=== PATIENT | male | born 2000 | race Caucasian/White ===

== ENCOUNTER 2018-05-19 18:32 | Emergency (ER) | payer OTHER | END 2018-05-19 20:12 | disposition home or self-care (01) | LOC: M ED 18:32 | DX: F41.8 Other specified anxiety disorders (principal) | CPT/HCPCS: 99284 ==

== ENCOUNTER 2018-06-14 13:51 | Emergency (ER) | payer OTHER ==
[2018-06-14 15:09] LABS: BASO % 0.1 % (0.0-1.0); EOS # 0.1 10^3/uL (0.0-0.50); EOS % 1.6 % (0.0-3.0); HEMATOCRIT 38.4 % (42.0-52.0); HEMOGLOBIN 12.8 g/dl (13.5-17.5); IMMATURE GRANULOCYTE % 0.1 % (0-3.0); LYMPH # 2.3 10^3/uL (1.5-6.5); LYMPH % 34.6 % (24.0-44.0); MEAN CORPUSCULAR HEMOGLOBIN 30.8 pg (27.0-33.0); MEAN CORPUSCULAR HGB CONC 33.3 g/dl (32.0-36.5); MEAN CORPUSCULAR VOLUME 92.3 fl (80.0-96.0); MONO # 0.5 10^3/uL (0.0-0.8); NEUTROPHILS # 3.8 10^3/uL (1.8-7.7); NEUTROPHILS % 56.6 % (36.0-66.0); PLATELET COUNT, AUTOMATED 182 10^3/uL (150-450); RED BLOOD COUNT 4.16 10^6/uL (4.30-6.10); RED CELL DISTRIBUTION WIDTH 12.6 % (11.5-14.5); WHITE BLOOD COUNT 6.7 10^3/uL (4.0-10.0)
[2018-06-14 15:32] LABS: ALBUMIN 4.4 GM/DL (3.2-5.2); ALBUMIN/GLOBULIN RATIO 1.38 (1.00-1.93); ALKALINE PHOSPHATASE 51 U/L (45-117); ALT/SGPT 16 U/L (12-78); ANION GAP 8 MEQ/L (8-16); AST/SGOT 15 U/L (7-37); BILIRUBIN,DIRECT 0.1 MG/DL (0.0-0.2); BILIRUBIN,TOTAL 0.4 MG/DL (0.2-1.0); BLOOD UREA NITROGEN 14 MG/DL (7-18); CALCIUM LEVEL 9.1 MG/DL (8.5-10.1); CARBON DIOXIDE LEVEL 26 MEQ/L (21-32); CHLORIDE LEVEL 109 MEQ/L (98-107); CREATININE FOR GFR 1.08 MG/DL (0.70-1.30); GLUCOSE, FASTING 88 MG/DL (70-100); LIPASE 104 U/L (73-393); POTASSIUM SERUM 4.5 MEQ/L (3.5-5.1); SODIUM LEVEL 143 MEQ/L (136-145); TOTAL PROTEIN 7.6 GM/DL (6.4-8.2)
[2018-06-14 17:44] LABS: APPEARANCE, URINE HAZY (CLEAR); BACTERIA, URINE AUTO NEGATIVE (NEGATIVE); BILIRUBIN, URINE AUTO NEGATIVE (NEGATIVE); BLOOD, URINE BLOOD NEGATIVE (NEGATIVE); COLOR, URINE YELLOW (YELLOW); GLUCOSE, URINE (UA) AUTO NEGATIVE (NEGATIVE); KETONE, URINE AUTO NEGATIVE (NEGATIVE); LEUKOCYTE ESTERASE, URINE AUTO NEGATIVE (NEGATIVE); MUCUS, URINE SMALL (NEGATIVE); NITRITE, URINE AUTO NEGATIVE (NEGATIVE); PROTEIN, URINE AUTO NEGATIVE (NEGATIVE); RBC, URINE AUTO 0 /HPF (0-3); SPECIFIC GRAVITY URINE AUTO 1.027 (1.002-1.035); SQUAMOUS EPITHELIAL CELL UR AU 0 /HPF (0-6); WBC, URINE AUTO 1 /HPF (0-3)
== END 2018-06-14 18:24 | disposition home or self-care (01) ==
LOC: M ED 13:51
DX: B80 Enterobiasis (principal); F17.210 Nicotine dependence, cigarettes, uncomplicated
CPT/HCPCS: 83690

== ENCOUNTER 2019-06-01 16:39 | Emergency (ER) | payer OTHER ==
[~2019-06-01] VITALS: Ht 185.4 cm; Wt 72.7 kg
[~2019-06-01 16:39] MED LIST: [UNRECOGNIZED DRUG - CODE] PO
[2019-06-01 17:36] LABS: HEMATOCRIT 43.5 % (42.0-52.0); HEMOGLOBIN 14.3 g/dl (13.5-17.5); MEAN CORPUSCULAR HEMOGLOBIN 30.6 pg (27.0-33.0); MEAN CORPUSCULAR HGB CONC 32.9 g/dl (32.0-36.5); MEAN CORPUSCULAR VOLUME 93.1 fl (80.0-96.0); PLATELET COUNT, AUTOMATED 210 10^3/uL (150-450); RED BLOOD COUNT 4.67 10^6/uL (4.30-6.10); WHITE BLOOD COUNT 10.4 10^3/uL (4.0-10.0)
[2019-06-01 18:07] LABS: AMPHETAMINES LEVEL URINE NEGATIVE (NEGATIVE); BARBITURATES URINE NEGATIVE (NEGATIVE); BENZODIAZEPINES URINE NEGATIVE (NEGATIVE); CANNABINOIDS URINE POSITIVE (NEGATIVE); COCAINE METABOLITE URINE NEGATIVE (NEGATIVE); METHADONE URINE NEGATIVE (NEGATIVE); OPIATES URINE NEGATIVE (NEGATIVE); PHENCYCLIDINE URINE NEGATIVE (NEGATIVE)
[2019-06-01 18:16] LABS: ACETAMINOPHEN LEVEL < 2.0 UG/ML (10.0-30.0); ALBUMIN 4.9 GM/DL (3.2-5.2); ALT/SGPT 19 U/L (12-78); BILIRUBIN,DIRECT 0.1 MG/DL (0.0-0.2); BILIRUBIN,TOTAL 0.4 MG/DL (0.2-1.0); BLOOD UREA NITROGEN 14 MG/DL (7-18); CALCIUM LEVEL 9.4 MG/DL (8.5-10.1); CARBON DIOXIDE LEVEL 28 MEQ/L (21-32); CHLORIDE LEVEL 108 MEQ/L (98-107); CREATININE FOR GFR 1.12 MG/DL (0.70-1.30); ETHYL ALCOHOL (ETHANOL) < 0.003 % (0.000-0.010); GLUCOSE, FASTING 101 MG/DL (70-100); POTASSIUM SERUM 3.9 MEQ/L (3.5-5.1); SALICYLATE LEVEL 3.2 MG/DL (5.0-30.0); SODIUM LEVEL 142 MEQ/L (136-145); TOTAL PROTEIN 8.2 GM/DL (6.4-8.2)
[2019-06-01 19:52] VITALS: BP 124/67
== END 2019-06-01 19:59 | disposition home or self-care (01) ==
LOC: M ED 16:39
DX: Z63.79 Other stressful life events affecting family and household (principal); F12.90 Cannabis use, unspecified, uncomplicated; F17.200 Nicotine dependence, unspecified, uncomplicated
CPT/HCPCS: 36415; 80048; 80076; 80307; 84443; 85027; 99284; G0480

== ENCOUNTER 2020-05-25 16:02 | Inpatient (IN) | payer OTHER, SELFPAY ==
[~2020-05-25] VITALS: Ht 185.4 cm; Wt 78.3 kg
[2020-05-25 17:27] LABS: HEMATOCRIT 47.6 % (42.0-52.0); HEMOGLOBIN 15.6 g/dl (13.5-17.5); MEAN CORPUSCULAR HEMOGLOBIN 30.2 pg (27.0-33.0); MEAN CORPUSCULAR HGB CONC 32.8 g/dl (32.0-36.5); MEAN CORPUSCULAR VOLUME 92.1 fl (80.0-96.0); PLATELET COUNT, AUTOMATED 191 10^3/uL (150-450); RED BLOOD COUNT 5.17 10^6/uL (4.30-6.10); WHITE BLOOD COUNT 7.8 10^3/uL (4.0-10.0)
[2020-05-25 17:37] LABS: AMPHETAMINES LEVEL URINE NEGATIVE (NEGATIVE); BARBITURATES URINE NEGATIVE (NEGATIVE); BENZODIAZEPINES URINE NEGATIVE (NEGATIVE); CANNABINOIDS URINE NEGATIVE (NEGATIVE); COCAINE METABOLITE URINE NEGATIVE (NEGATIVE); METHADONE URINE NEGATIVE (NEGATIVE); OPIATES URINE NEGATIVE (NEGATIVE); PHENCYCLIDINE URINE NEGATIVE (NEGATIVE)
[2020-05-25 17:47] LABS: ALBUMIN 4.2 GM/DL (3.2-5.2); ALT/SGPT 38 U/L (12-78); BILIRUBIN,DIRECT 0.1 MG/DL (0.0-0.2); BILIRUBIN,TOTAL 0.3 MG/DL (0.2-1.0); BLOOD UREA NITROGEN 17 MG/DL (7-18); CALCIUM LEVEL 9.7 MG/DL (8.5-10.1); CARBON DIOXIDE LEVEL 30 MEQ/L (21-32); CHLORIDE LEVEL 106 MEQ/L (98-107); CREATININE FOR GFR 0.98 MG/DL (0.70-1.30); ETHYL ALCOHOL (ETHANOL) < 0.003 % (0.000-0.010); GLOMERULAR FILTRATION RATE > 60.0 (>60); GLUCOSE, FASTING 91 MG/DL (70-100); POTASSIUM SERUM 4.1 MEQ/L (3.5-5.1); SALICYLATE LEVEL 1.7 MG/DL (5.0-30.0); SODIUM LEVEL 140 MEQ/L (136-145); TOTAL PROTEIN 8.1 GM/DL (6.4-8.2)
[2020-05-25 17:48] LABS: ACETAMINOPHEN LEVEL < 2.0 UG/ML (10.0-30.0)
[2020-05-25] MEDS ORDERED: NICOTINE 21MG/24HR 1 EA TRANSDERMAL TD ONE (22:00)
[2020-05-27] MEDS ORDERED: NICOTINE 21MG/24HR 1 EA TRANSDERMAL TD ONE (00:15)
--- NOTE | 2020-05-28 09:56 | ECGEPIP ---
[facility] - ED Test Date: 2020-05-26 Pat Name: RODOLFO MC Department: Room: - Gender: Male [employer] Set Up Worker: tom : 2000 Requested By: NORAH Costa Order Number: [id number] Reading MD: Solitario Caballero Measurements Intervals [place] Rate: 58 P: 69 AL: 176 QRS: 64 QRSD: 97 T: 48 QT: 369 QTc: 363 Interpretive Statements SINUS BRADYCARDIA WITH SINUS ARRHYTHMIA NO PRIORS FOR COMPARISON Electronically Signed on 05-28-2020 9:56:11 EST by Solitario Caballero
[2020-05-28] MEDS ORDERED: NICOTINE 21MG/24HR 1 EA TRANSDERMAL TD ONE (18:30)
[2020-05-28] MEDS ORDERED: ACETAMINOPHEN TAB 650MG DOSE (2X325MG) PO PRN (19:15)
[2020-05-28] MEDS ORDERED: MAALOX 30 ML SUSP *UDC PO PRN (19:15)
[2020-05-28] MEDS ORDERED: MOM 30ML SUSPENSION UDC PO PRN (19:15)
[2020-05-28 21:03] VITALS: BP 126/63
[2020-05-29] MEDS: traZODone 50 MG TAB PO PRN ×2 (00:11→22:07)
[2020-05-29 06:50] VITALS: BP 129/79
[2020-05-29] MEDS: NICOTINE 21MG/24HR 1 EA TRANSDERMAL TD SCH (09:00)
--- NOTE | 2020-05-29 14:57 | HPEPDOC ---
General Date of Admission May 28, 2020 at 19:13 Date of Service: May 29, 2020 Chief Complaint The patient is a 19-year-old male admitted with a reason for visit of Unspecified Depressive Disorder. Source: Patient History of Present Illness 19 year old male admitted to [facility] for unspecified depression. I am seeing the Patient for medical history and physical. Patient denied any complaints today. Home Medications No Active Prescriptions or Reported Meds Allergies Coded Allergies: No Known Allergies (Unverified , 05/19/18) Past Medical History Medical History Depression suicidal attempt by strangulation in past Polysubstance abuse Surgical History Ingrown toe nail surgery Family History Significant Family History: Other (Maternal grandmother with vertigo) Social History * Smoker: current smoker Alcohol: occationally Drugs: cocaine, heroin, marijuana, other (methamphetamine. ) A-FIB/CHADSVASC A-FIB History Current/History of A-Fib/PAF?: No Review of Systems Constitutional: Denies: Chills, Fever, Night Sweats Eyes: Denies: Pain, Vision change ENT: Denies: Head Aches, Ear Pain, Dysphagia Skin: Denies: Rash, Lesions, Breakdown Pulmonary: Denies: Dyspnea, Cough Cardiovascular: Denies: Chest Pain, Palpitations, Orthopnea, Paroxysmal Noc. Dyspnea, Lt Headedness Gastrointestinal: Denies: Nausea, Vomiting, Abdominal Pain, Diarrhea Genitourinary: Denies: Dysuria, Frequency, Incontinence, Retention Hematologic: Denies: Bruising, Bleeding Excessively Musculoskeletal: Denies: Neck Pain, Back Pain, Joint Pain, Muscle Pain, Spasms Physical Examination General Exam: Positive: Alert, Cooperative, No Acute Distress Eye Exam: Positive: PERRLA, Conjunctiva & lids normal, EOMI; Negative: Sclera icteric ENT Exam: Positive: Atraumatic, Mucous membr. moist/pink, Pharynx Normal Neck Exam: Positive: Supple; Negative: JVD, thyromegaly Chest Exam: Positive: Clear to auscultation, Normal air movement Heart Exam: Positive: Rate Normal, Regular Rhythm, Normal S1, Normal S2; Negative: Murmurs, Rubs Abdomen Exam: Positive: Normal bowel sounds, Soft; Negative: Tenderness, Hepatospenomegaly Extremity Exam: Positive: Normal pulses; Negative: Clubbing, Cyanosis, Edema Skin Exam: Positive: Nl turgor and temperature; Negative: Breakdown, Lesion Vital Signs Vital Signs Date Time Temp Pulse Resp B/P (MAP) Pulse Ox O2 Delivery O2 Flow Rate FiO2 05/29/20 08:03 Room Air 05/29/20 06:50 98.1 73 16 129/79 (96) 05/28/20 21:03 99 Assessment/Plan 19 year old male admitted to [facility] for unspecified depression reporting suicidal thoughts with no definite plan. He has h/o polysubstance abuse reports last used 2 weeks ago. I am seeing the Patient for medical history and physical. Patient denied any complaints today. Depression as per psychiatry Polysubstance abuse as per psychiatry. No active medical issues will sign off. Plan / VTE VTE Prophylaxis Ordered?: No (Freely ambulatory) CHI MCCLENDON MD May 29, 2020 14:57
[2020-05-30 06:38] VITALS: BP 105/53
[2020-05-30] MEDS: NICOTINE 21MG/24HR 1 EA TRANSDERMAL TD SCH (09:00)
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
[2020-05-30 18:08] VITALS: BP 129/73
[2020-05-30] MEDS: traZODone 50 MG TAB PO PRN (21:43)
[2020-05-31 06:29] VITALS: BP 128/59
[2020-05-31] MEDS: NICOTINE 21MG/24HR 1 EA TRANSDERMAL TD SCH (09:00)
--- NOTE | 2020-05-31 10:30 | MHIPNPDOC ---
[facility] [facility] Progress Note Progress Note DATE OF SERVICE: 05/31/20 Subjective HPI: Devendra presents today for psych issues. Met with the patient, reviewed his previous chart. He reports that he is not interested in being tried on medication. Finds the environments helpful. He hasn't been going to groups or engaging otherwise. Discuss with the patient the need for engaging in some form of treatment as this is a major part of helping to resolve his depression. He reported he had fairly bad depression that had brought him in and that he only made some progress so far. Objective Mood: Constricted. Dysthymic. Speech: Spontaneous and Fluid. Normal volume. Normal rate. Cognition: Grossly intact. Alert, Attentive, and Oriented to person, place, time. Thought Form: Linear and logical. Thought Content: Associations intact. No thoughts of self harm. No evidence of delusions. No evidence of suicidal ideation. No evidence of aggressive or homicidal ideation. Judgement: Poor. Insight: Poor. Assessment F33.8 Other recurrent depressive disorders Plan Encourage group therapy. Discussed the importance of medications and offered various options, but he consistently declines. Will need longer stay to further help treat. Will attempt to continue to convinced of the need for medication, especially given his depression. Vital Signs Vital Signs Date Time Temp Pulse Resp B/P (MAP) Pulse Ox O2 Delivery O2 Flow Rate FiO2 05/31/20 06:29 97.3 59 16 128/59 (82) Room Air 05/30/20 06:38 93 Current Medications Current Medications Medications (Trade) Dose Ordered Sig/Chad Route PRN Reason Start Time Stop Time Status Last Admin Dose Admin Acetaminophen (Tylenol Tab) 650 mg Q6HP PRN PO HEADACHE or DISCOMFORT 05/28/20 19:15 Al Hydrox/Mg Hydrox/Simethicone (Mylanta) 30 ml Q4HP PRN PO HEARTBURN/INDIGESTION 05/28/20 19:15 Home Med (Med Rec Complete!) ASDIRECTED XX 05/25/20 19:45 05/25/20 19:33 DC Magnesium Hydroxide (Milk Of Magnesia) 30 ml DAILYPRN PRN PO CONSTIPATION 05/28/20 19:15 Nicotine (Nicoderm Cq 21mg) 1 patch DAILY TD 05/29/20 09:00 Trazodone HCl (Desyrel) 50 mg QHSP PRN PO INSOMNIA 05/28/20 19:15 05/30/20 21:43 Allergies Coded Allergies: No Known Allergies (Unverified , 05/19/18) BASHIR DUNHAM DO May 31, 2020 10:30
[2020-06-01 06:31] VITALS: BP 140/68
[2020-06-01] MEDS: NICOTINE 21MG/24HR 1 EA TRANSDERMAL TD SCH (08:59)
--- NOTE | 2020-06-01 09:46 | MHIPNPDOC ---
[facility] Progress Note Progress Note DATE OF SERVICE: 06/01/20 Subjective Copy HPI: Patient was met with today and reports that he has gone to some groups but is still dysthymic. He was sleeping in his bed and waiting for his nurse to come back. Nursing staff reports he tends to be more open with females than males. His depression is still present with low mood and insomnia at times but has been engaging more on the unit. Objective Copy Appearance: Well groomed. Appears to be stated age. Well nourished. Behavior: Engaged. Cooperative with good eye contact. Pleasant. Affect: dysthemic, constricted. Cognition: Alert, Attentive, and Oriented to person, place, time. Thought Content: No evidence of delusions. No evidence of suicidal ideation. No evidence of aggressive or homicidal ideation. No thoughts of self harm. Judgement: Poor. Insight: Poor. Assessment Copy F33.9 Major depressive disorder, recurrent, unspecified Plan Copy Patient still denies medications. Continue to advocate for consideration of medication as it could be quite helpful for him. Otherwise, encourage meetings with nurses and group therapy as this is likely to help still pre-contemplative. Vital Signs Vital Signs Date Time Temp Pulse Resp B/P (MAP) Pulse Ox O2 Delivery O2 Flow Rate FiO2 06/01/20 06:31 98.2 53 18 140/68 (92) Room Air 05/30/20 06:38 93 Current Medications Current Medications Medications (Trade) Dose Ordered Sig/Chad Route PRN Reason Start Time Stop Time Status Last Admin Dose Admin Acetaminophen (Tylenol Tab) 650 mg Q6HP PRN PO HEADACHE or DISCOMFORT 05/28/20 19:15 Al Hydrox/Mg Hydrox/Simethicone (Mylanta) 30 ml Q4HP PRN PO HEARTBURN/INDIGESTION 05/28/20 19:15 Home Med (Med Rec Complete!) ASDIRECTED XX 05/25/20 19:45 05/25/20 19:33 DC Magnesium Hydroxide (Milk Of Magnesia) 30 ml DAILYPRN PRN PO CONSTIPATION 05/28/20 19:15 Nicotine (Nicoderm Cq 21mg) 1 patch DAILY TD 05/29/20 09:00 Trazodone HCl (Desyrel) 50 mg QHSP PRN PO INSOMNIA 05/28/20 19:15 05/30/20 21:43 Allergies Coded Allergies: No Known Allergies (Unverified , 05/19/18) BASHIR DUNHAM DO Jun 01, 2020 09:46
--- NOTE | 2020-06-01 10:57 | MHIPN ---
DATE: 05/30/2020 HISTORY OF PRESENT ILLNESS: The patient today tells me that he is okay. His eye contact is poor. He tells me that he is no longer depressed, he is no longer suicidal and he has no complaints. I asked him what was making him feel better and he tells me Soraya had time to think. He would not elaborate further than that; however. MENTAL STATUS EXAM: Patient is alert and oriented times 3. Eye contact is poor. Psychomotor activity is decreased. There is no formal thought disorder noted. He says his mood is okay. Affect is flat. He is not psychotic, suicidal or homicidal. Concentration is fair. Memory intact. Insight and judgment is poor. DIAGNOSES: * Other specified depressive disorder. * Opioid use disorder. * Stimulant use disorder. TREATMENT PLAN: At this point we will continue to evaluate this patient for depressive and suicidal ideation. I have concerns about this patient due to the fact that he had voiced so much severe depression for so long and having had suicidal ideation and now today he just tells me that he is doing better, but he cannot elaborate why he is feeling better. I am concerned because of the fact that he does not appear to have any support and his extensive drug use. We will also try to encourage him to seek some treatment for his substance abuse upon discharge. JOSE
[2020-06-02 06:29] VITALS: BP 111/54
[2020-06-02] MEDS: NICOTINE 21MG/24HR 1 EA TRANSDERMAL TD SCH (09:00)
[2020-06-02 16:00] VITALS: BP 162/65
[2020-06-03 06:48] VITALS: BP 123/58
[2020-06-03] MEDS: NICOTINE 21MG/24HR 1 EA TRANSDERMAL TD SCH (08:31)
[2020-06-03 18:51] VITALS: BP 137/66
[2020-06-04 06:15] VITALS: BP 148/79
[2020-06-04] MEDS: NICOTINE 21MG/24HR 1 EA TRANSDERMAL TD SCH (09:00)
--- NOTE | 2020-06-04 09:42 | MHIPNPDOC ---
[facility] Progress Note Progress Note DATE OF SERVICE: 06/04/20 HISTORY: The patient is met with today, he reports that he is doing better and feeling much improved. He reports that he felt that he had gotten the supportive environment in our unit and had made progress, he still reports that he is not interested in medications but feels ready to return home, discussed with him about his discharge plans and how to increase his social support. Nursing staff report otherwise he has done fairly well. VITAL SIGNS: See below. NEW TEST RESULTS: None. CURRENT MEDICATIONS: See below. MENTAL STATUS EXAMINATION: General: [Well dressed with good hygiene] Speech: [Spontaneous and fluid] Thought processes: [Linear and logical] Thought content: [Future orientated] Abstract reasoning, and computation: [Intact] Description of associations: [Intact] Description of abnormal or psychotic thoughts:[Denies any suicidal or homicidal ideation. Denies any auditory or visual hallucinations. Does not appear to be responding to internal stimuli. Does not appear to be endorsing any bizarre or paranoid ideation.] Judgment: [Fair] Insight: [Fair] Orientation: [Alert and orientated 3] Recent and remote memory: [Intact] Attention span and concentration: [Intact] Fund of knowledge: [Adequate] Mood: "Good" Affect: Appropriately reactive DIAGNOSES: 1. Unspecified depressive disorder. 2. . 3. . ASSESSMENT: Patient appears to have made good progress unclear if his previous substance use in the past or lack of social support contributed to an adjustment disorder or MDD, however he appears to resolved while he is been quite clear that he does not want to try medications and at this time even after significant discussion of the benefits. MANAGEMENT PLAN: Will continue supportive treatment, pending discharge tomorrow will begin the process of ascertaining and linking him with care management. TIME SPENT: 15 minutes. Vital Signs Vital Signs Date Time Temp Pulse Resp B/P (MAP) Pulse Ox O2 Delivery O2 Flow Rate FiO2 06/04/20 06:15 98.7 87 18 148/79 (102) 97 Room Air Current Medications Current Medications Medications (Trade) Dose Ordered Sig/Chad Route PRN Reason Start Time Stop Time Status Last Admin Dose Admin Acetaminophen (Tylenol Tab) 650 mg Q6HP PRN PO HEADACHE or DISCOMFORT 05/28/20 19:15 Al Hydrox/Mg Hydrox/Simethicone (Mylanta) 30 ml Q4HP PRN PO HEARTBURN/INDIGESTION 05/28/20 19:15 Home Med (Med Rec Complete!) ASDIRECTED XX 05/25/20 19:45 05/25/20 19:33 DC Magnesium Hydroxide (Milk Of Magnesia) 30 ml DAILYPRN PRN PO CONSTIPATION 05/28/20 19:15 Nicotine (Nicoderm Cq 21mg) 1 patch DAILY TD 05/29/20 09:00 Trazodone HCl (Desyrel) 50 mg QHSP PRN PO INSOMNIA 05/28/20 19:15 05/30/20 21:43 Allergies Coded Allergies: No Known Allergies (Unverified , 05/19/18) BASHIR DUNHAM DO Jun 04, 2020 09:42
[2020-06-04 16:47] VITALS: BP 127/83
[2020-06-05 06:02] VITALS: BP 130/63
[2020-06-05] MEDS: NICOTINE 21MG/24HR 1 EA TRANSDERMAL TD SCH (09:00)
--- NOTE | 2020-06-05 09:55 | MHDSPDOC ---
[facility] Discharge Summary Discharge Summary DATE OF ADMISSION: May 28, 2020 at 19:13 DATE OF DISCHARGE: Jun 05, 2020 at 12:15 DISCHARGE DIAGNOSES: Unspecified depressive disorder. CONSULTANTS INVOLVED:[ None (basic hospitalist screening)] REASON FOR ADMISSION & TREATMENT AND PROGRESS ON THE UNIT : The patient was admitted to the inpatient health unit with depression and social isolation, he was admitted but he was uninterested in starting antidepressants despite emphatic statements that he should. The patient was treated primarily with therapy and group therapy he did well and formed meaningful social connections on the unit appeared to improve and devastate a fairly good insight he had wanted to have one the other patients who is discharging stay with them for short time. I strongly advised against this, however, he was still wanting to do this. He had made good progress and generally was amenable, although mildly shy, it did not appear that he had any significant depression as he was quite social. We tried to get him in contact with his family, however, letter sent out on his behalf did not produce any contacts. DISCHARGE ASSESSMENT[improved] Legal status considerations: The patient at the time of discharge did not meet criteria for involuntary admission/extension due to having a [normal] mental status exam, [fair] insight into the situation, They are engaged in the discharge process, as well as being friendly and amenable in behavioral control and havent been engaging in any observed concerning behavior or ideation recently. They decline voluntary extension/admission at this time and must be discharged in [place], as Im unable to make a case for holding the patient against their will. They may have historical risk factors of admissions and other interactions with psychiatry however, those are not modifiable from a clinical perspective. The patient will need to be discharged in [place]. MENTAL STATUS EXAMINATION ON DISCHARGE: [General: Well dressed with good hygiene Speech: Spontaneous and fluid Thought processes: Linear and logical Thought content: Future orientated Abstract reasoning, and computation: Intact Description of associations: Intact Description of abnormal or psychotic thoughts:Denies any suicidal or homicidal ideation. Denies any auditory or visual hallucinations. Does not appear to be responding to internal stimuli. Does not appear to be endorsing any bizarre or paranoid ideation. Judgment: fair Insight: fair Orientation: Alert and orientated 3 Recent and remote memory: Intact Attention span and concentration: Intact Fund of knowledge: Adequate Mood: "okay" Affect: Euthymic with a full range] PLAN/FOLLOWUP ARRANGEMENTS: Follow up appointments made (PCP and MH in 5 days of D/C date) and safety plan completed. Safety Planning aspects completed prior to discharge Case management referral [RN reviewed crisis hotline information and other aspects to empower patient to access care in interim before next appointment.] The amount of time spent in the coordination of care for this patient was approximately 30 minutes. Vital Signs/I&Os Vital Signs Date Time Temp Pulse Resp B/P (MAP) Pulse Ox O2 Delivery O2 Flow Rate FiO2 06/05/20 06:02 98.6 78 14 130/63 (85) 100 Room Air Medications Scheduled Nicotine (Nicotine Patch) 21 Mg Patch.td24, 1 PATCH TD DAILY for tobacco for 30 Days, #30 Allergies Coded Allergies: No Known Allergies (Unverified , 05/19/18) BASHIR DUNHAM DO Jun 05, 2020 09:55
[2020-06-05] MEDS ORDERED: NICO21PAT TD (10:03)
== END 2020-06-05 12:15 | disposition home or self-care (01) | DRG 754 ==
LOC: M ED 16:02 → M ED INP 05-28 19:13 → M PSY 05-28 20:25
PROVIDERS: ADMIT Psychiatry & Neurology Psychiatry; ATTEND Psychiatry & Neurology Addiction Medicine
DX: F32.9 Major depressive disorder, single episode, unspecified (principal); F11.10 Opioid abuse, uncomplicated; F15.10 Other stimulant abuse, uncomplicated; F17.200 Nicotine dependence, unspecified, uncomplicated

== ENCOUNTER → 2020-10-30 | Outpatient (REF) ==
[~2020-10-30] MED LIST changes: +NICO21PAT TD
[2020-10-30 18:45] LABS: INFLUENZA A AMPLIFICATION NEGATIVE (NEGATIVE); INFLUENZA B AMPLIFICATION NEGATIVE (NEGATIVE)
== END ==
LOC: M LAB 09:18
DX: Z02.89 Encounter for other administrative examinations (principal)